=== PATIENT | female | born 1975 ===

== ENCOUNTER 2025-03-23 08:45 | Inpatient (IN) | payer OTHER ==
[~2025-03-23] VITALS: Ht 160 cm; Wt 75.7 kg
[2025-03-23 08:46] VITALS: BP 138/64
[2025-03-23 08:50] VITALS: BP 109/76
[2025-03-23] MEDS ORDERED: OMEPRAZOLE MAGN20 MG (08:53)
[2025-03-23] MEDS ORDERED: PEPCID 40MG (08:53)
[2025-03-23] MEDS ORDERED: HIERRO (08:54)
[2025-03-23] MEDS ORDERED: ONABOTULINUMTOXINA (08:54)
[2025-03-23] MEDS ORDERED: RIZATRIPTAN10 MG (08:54)
[2025-03-23 09:00] LABS: BASO % 0.6 % (0.1-1.2); EOS # 0.16 (0.04-0.54); EOS % 2.1 % (0.7-7.0); LYMPH # 2.31 (1.18-3.74); LYMPH % 29.8 % (19.3-53.1); MEAN PLATELET VOLUME 9.60 fl (9.4-12.4); MONO # 0.48 (0.24-0.82); MONO % 6.2 % (4.7-12.5); NEUT # 4.70 (1.56-6.13); NEUT % 60.7 % (34.0-71.1); RED CELL DISTRIBUTION WIDTH 16.1 % (11.6-14.4)
[2025-03-23 09:15] LABS: INR 1.03
[2025-03-23 10:06] LABS: ALT/SGPT 29 U/L (12-78); AST/SGOT 13 U/L (15-37); BILIRUBIN TOTAL 0.59 mg/dL (0.3-1.2); BUN CREA RATIO 22 (7.0-25.0); CREATININE SERUM 0.68 mg/dL (0.55-1.02); GFR 91.96; GLOBULINA 3.8 G/DL (2.4-3.5); GLUCOSE FASTING 118 mg/dL (65-100); OSMOLALITY SERUM 283 MOSM/KG (275-295)
[2025-03-23 10:07] LABS: HCG QUANTITATIVE < 1 mUI/mL (1-3)
[2025-03-29] MEDS ORDERED: METRONIDAZOLE/SODIUM CHLORIDE 500 MG/100 ML PIGGYBACK IV ONE (07:10)
[2025-03-29] MEDS ORDERED: CEFAZOLIN SODIUM 1,000 MG VIAL ONE (07:11)
[2025-03-29] MEDS ORDERED: SUGAMMADEX SODIUM 200 MG/2 ML VIAL IV ONE (08:39)
[2025-03-29] MEDS ORDERED: POVIDONE-IODINE 118 ML BOTT TOP ONE (09:15)
[2025-03-29] MEDS ORDERED: KETOROLAC TROMETHAMINE 30 MG VIAL IV PRN (11:15)
[2025-03-29] MEDS ORDERED: MORPHINE SULFATE 4 MG/ML VIAL IV PRN (11:15)
[2025-03-29] MEDS ORDERED: RINGERS SOLUTION,LACTATED 1,000 ML IV SCH (11:45)
[2025-03-29] MEDS ORDERED: ACETAMINOPHEN 500 MG GEL..CAP PO SCH (12:00)
[2025-03-29] MEDS ORDERED: ONDANSETRON HCL 2 MG/ML VIAL ONE (12:18)
[2025-03-29] MEDS ORDERED: GABAPENTIN 300 MG CAPSULE PO SCH (13:00)
[2025-03-29 14:13] VITALS: BP 138/64
[2025-03-29 17:38] VITALS: BP 109/71
[2025-03-30] VITALS: BP 93/60
[2025-03-30 06:23] LABS: BASO % 0.2 % (0.1-1.2); EOS # 0.11 (0.04-0.54); EOS % 0.9 % (0.7-7.0); LYMPH # 1.70 (1.18-3.74); LYMPH % 13.7 % (19.3-53.1); MEAN PLATELET VOLUME 10.00 fl (9.4-12.4); MONO # 1.26 (0.24-0.82); MONO % 10.2 % (4.7-12.5); NEUT # 9.25 (1.56-6.13); NEUT % 74.5 % (34.0-71.1); RED CELL DISTRIBUTION WIDTH 16.5 % (11.6-14.4)
[2025-03-30 08:00] VITALS: BP 107/72
[2025-03-30] MEDS ORDERED: PANTOPRAZOLE SODIUM 40 MG TABLET.DR PO SCH (09:00)
[2025-03-30] MEDS ORDERED: OxyCODONE HCL 5 MG TABLET (ROXICODONE) PO PRN (10:00)
== END 2025-03-30 13:48 | disposition home or self-care (01) | DRG 743 ==
LOC: OB/GYN 03-29 07:00 → O/R 03-29 07:00 → OB/GYN 03-29 08:45
PROVIDERS: ADMIT Student in an Organized Health Care Education/Training Program; ATTEND Student in an Organized Health Care Education/Training Program
PROC: 0UT74ZZ Resection of Bilateral Fallopian Tubes, Percutaneous Endoscopic Approach (ICD-10-PCS; 2025-03-29)
PROC: 0UB04ZZ Excision of Right Ovary, Percutaneous Endoscopic Approach (ICD-10-PCS; 2025-03-29)
PROC: 0UN04ZZ Release Right Ovary, Percutaneous Endoscopic Approach (ICD-10-PCS; 2025-03-29)
PROC: 0DBW4ZZ Excision of Peritoneum, Percutaneous Endoscopic Approach (ICD-10-PCS; 2025-03-29)
PROC: 8E0W4CZ Robotic Assisted Procedure of Trunk Region, Percutaneous Endoscopic Approach (ICD-10-PCS; 2025-03-29)
PROC: 0TJB8ZZ Inspection of Bladder, Via Natural or Artificial Opening Endoscopic (ICD-10-PCS; 2025-03-29)
PROC: 0UT94ZZ Resection of Uterus, Percutaneous Endoscopic Approach (ICD-10-PCS; principal; 2025-03-29 12:30)
DX: N80.03 Adenomyosis of the uterus (principal); N84.0 Polyp of corpus uteri; N84.1 Polyp of cervix uteri; N72 Inflammatory disease of cervix uteri; D27.0 Benign neoplasm of right ovary; N80.353 Endometriosis of bilateral pelvic sidewall, unspecified depth; R10.20 Pelvic and perineal pain unspecified side; N80.9 Endometriosis, unspecified; D64.9 Anemia, unspecified; Z90.710 Acquired absence of both cervix and uterus
CPT/HCPCS: 58571; 58662; 52000; S2900